=== PATIENT | female | born 1950 | race Caucasian/White ===

== ENCOUNTER 2020-11-09 18:37 | Emergency (ER) | payer BC, MEDICARE ==
--- NOTE | 2020-11-09 19:14 | EDM.PDOC ---
ED HPI GENERAL MEDICAL PROBLEM - General Chief Complaint: General Stated Complaint: SOB, VOMITING Time Seen by Provider: 11/09/20 18:55 Source of Information: Reports: Patient History Limitations: Reports: No Limitations - History of Present Illness INITIAL COMMENTS - FREE TEXT/NARRATIVE: 61-year-old lady was changed from oxybutynin to Darifenacin 24 days ago. She immediately began to feel changes in her equilibrium. She had increasing dizziness over the last 4 days as well as difficulty with urgency, incontinence, fatigue. She states that she stayed in bed most of the morning today. When she got up today she felt so dizzy she began to vomit. She vomited several times at home. She tried eating some watermelon and drinking some water to try to replenish her fluids but that just made her vomit again. To the emergency department for evaluation and treatment. She is suspecting that she has dehydration. Stop taking the oxybutynin at the request of her dentist secondary to dental caries. - Related Data Allergies Allergy/AdvReac Type Severity Reaction Status Date / Time No Known Allergies Allergy Verified 11/09/20 18:49 Home Meds: Home Meds Darifenacin [Enablex] 7.5 mg PO DAILY 11/09/20 [History] ED ROS GENERAL - Review of Systems Review Of Systems: See Below Constitutional: Reports: Malaise, Weakness, Fatigue HEENT: Reports: No Symptoms Respiratory: Reports: No Symptoms Cardiovascular: Reports: No Symptoms Endocrine: Reports: Fatigue GI/Abdominal: Reports: Nausea, Vomiting : Reports: Frequency, Incontinence, Urgency Musculoskeletal: Reports: No Symptoms Skin: Reports: No Symptoms Neurological: Reports: Dizziness, Difficulty Walking, Weakness Psychiatric: Reports: No Symptoms Hematologic/Lymphatic: Reports: No Symptoms Immunologic: Reports: No Symptoms ED EXAM, GENERAL - Physical Exam Exam: See Below Exam Limited By: No Limitations General Appearance: Alert, Mild Distress Eye Exam: Bilateral Eye: EOMI Throat/Mouth: Other (Oral mucosa is somewhat dry) Head: Atraumatic, Normocephalic Neck: Normal Inspection Respiratory/Chest: No Respiratory Distress, Lungs Clear, Normal Breath Sounds Cardiovascular: No Murmur, Tachycardia Peripheral Pulses: 2+: Radial (L), Radial (R), Dorsalis Pedis (L), Dorsalis Pedis (R) GI/Abdominal: Normal Bowel Sounds, Soft, Non-Tender Back Exam: Normal Inspection. No: CVA Tenderness (R), CVA Tenderness (L) Extremities: Normal Inspection, No Pedal Edema, Other (Capillary refill less than 2 seconds in all 4 distal extremities) Neurological: Alert, Oriented, CN II-XII Intact, Normal Cognition Psychiatric: Anxious Skin Exam: Warm, Dry Course - Vital Signs Text/Narrative:: Orthostatic pressures are negative. Lab rev Last Recorded V/S: Last Vital Signs Temp 37.1 C 11/09/20 18:45 Pulse 94 11/09/20 18:45 Resp 18 11/09/20 18:45 BP 133/74 11/09/20 18:45 Pulse Ox 96 11/09/20 18:45 Orthostatic Blood Pressure [ 107/68 Standing] Orthostatic Blood Pressure [ 104/73 Sitting] - Orders/Labs/Meds Orders: Active Orders 24 hr Category Date Time Status Orthostatic Vital Signs [RC] ASDIRECTED Care 11/09/20 19:17 Active Dextrose 50% in Water Med 11/09/20 20:00 Active 50 ml IVPUSH ASDIRECTED PRN Glucagon,Human Recombinant [GlucaGen] Med 11/09/20 20:00 Active 1 mg IM ASDIRECTED PRN Insulin Regular in 0.9 % NACL [Myxredlin in NS 100 UNIT Med 11/09/20 20:00 Active /100 ML] 100 ml IV TITRATE Lactated Ringers [Ringers, Lactated] 1,000 ml Med 11/09/20 21:00 Active IV ASDIRECTED Medication Orders Dextrose/Water (50% Dextrose In Water 50 Ml Syringe) 50 ml IVPUSH ASDIRECTED PRN PRN Reason: Hypoglycemia Glucagon (Glucagon,Human Recombinant 1 Mg Vial) 1 mg IM ASDIRECTED PRN PRN Reason: Hypoglycemia Insulin Regular in 0.9 % NACL (Myxredlin In Ns 100 Unit/100 Ml) 100 mls @ 9.979 mls/hr IV TITRATE LIZA; Protocol Last Admin: 11/09/20 20:44 Dose: 0.1 units/kg/hr, 9.979 mls/hr Documented by: ODELL Cosigned by: IRVIN Lactated Ringer's (Ringers, Lactated) 1,000 mls @ 1,000 mls/hr IV ASDIRECTED LIZA Last Admin: 08/14/21 20:52 Dose: 1,000 mls/hr Documented by: [facility] Labs: Laboratory Tests 11/09/20 11/09/20 11/09/20 Range/Units 19:20 19:20 19:46 WBC 10.7 H (3.0-10.3) x10-3/uL RBC 6.01 H (3.60-5.20) x10(6)uL Hgb 13.9 (11.4-15.5) g/dL Hct 48.7 H (34.2-48.2) % MCV 81.0 (76.7-100.5) fL MCH 23.1 L (23.9-33.9) pg MCHC 28.6 L (31.9-34.8) g/dL RDW 20.1 H (12.3-16.5) % Plt Count 303 (151-488) x10(3)uL MPV 10.1 (7.1-12.4) fL Neut % (Auto) 80.7 H (30.8-76.2) % Lymph % (Auto) 9.4 L (18.4-52.1) % [facility] % (Auto) 9.0 (4.4-15.7) % Eos % (Auto) 0.1 L (0.6-8.1) % Baso % (Auto) 0.8 (0.2-1.5) % Neut # (Auto) 8.6 H (1.5-6.3) x10-3/uL Lymph # (Auto) 1.0 (1.0-4.4) x10-3/uL [facility] # (Auto) 1.0 (0.3-1.0) x10-3/uL Eos # (Auto) 0.0 (0.0-0.8) x10-3/uL Baso # (Auto) 0.1 (0.0-0.1) x10-3/uL POC VBG pH (7.32-7.43) pH Units POC VBG pCO2 (41-51) mmHg POC VBG HCO3 (21-29) mmol/L VBG Base Excess (-2-3) mmol/L O2 Delivery Device Sodium 133 L (135-145) mmol/L Potassium 5.6 H (3.5-5.3) mmol/L Chloride 96 L (100-110) mmol/L Carbon Dioxide 14 L (21-32) mmol/L BUN 53 H (7-18) mg/dL Creatinine 2.1 H* (0.55-1.02) mg/dL Est Cr Clr Drug Dosing 24.00 mL/min Estimated GFR (MDRD) 23 L (>60) BUN/Creatinine Ratio 25.2 H (9-20) Glucose 1191 H* (80-116) mg/dL POC Glucose > 600 H* (80-116) mg/dL Calcium 9.9 (8.6-10.2) mg/dL Total Bilirubin 0.6 (0.1-1.3) mg/dL AST 14 (5-25) IU/L ALT 39 H (12-36) U/L Alkaline Phosphatase 140 H (56-112) IU/L Total Protein 7.8 (6.0-8.0) g/dL Albumin 3.8 (3.2-4.6) g/dL Globulin 4.0 g/dL Albumin/Globulin Ratio 1.0 Urine Color (YELLOW) Urine Appearance (CLEAR) Urine pH (5.0-6.5) Ur Specific [place] (1.010-1.025) Urine Protein (NEGATIVE) mg/dL Urine Glucose (UA) (NORMAL) mg/dL Urine Ketones (NEGATIVE) mg/dL Urine Occult Blood (NEGATIVE) Urine Nitrite (NEGATIVE) Urine Bilirubin (NEGATIVE) Urine Urobilinogen (NEGATIVE) mg/dL Ur Leukocyte Esterase (NEGATIVE) Urine RBC (0-5) Urine WBC (0-5) Ur Squamous Epith Cells (NS,R,O) Urine Bacteria (NS) SARS-CoV-2 RNA (CONCHIS) (NEGATIVE) 11/09/20 11/09/20 11/09/20 Range/Units 20:25 20:25 20:43 WBC (3.0-10.3) x10-3/uL RBC (3.60-5.20) x10(6)uL Hgb (11.4-15.5) g/dL Hct (34.2-48.2) % MCV (76.7-100.5) fL MCH (23.9-33.9) pg MCHC (31.9-34.8) g/dL RDW (12.3-16.5) % Plt Count (151-488) x10(3)uL MPV (7.1-12.4) fL Neut % (Auto) (30.8-76.2) % Lymph % (Auto) (18.4-52.1) % [facility] % (Auto) (4.4-15.7) % Eos % (Auto) (0.6-8.1) % Baso % (Auto) (0.2-1.5) % Neut # (Auto) (1.5-6.3) x10-3/uL Lymph # (Auto) (1.0-4.4) x10-3/uL [facility] # (Auto) (0.3-1.0) x10-3/uL Eos # (Auto) (0.0-0.8) x10-3/uL Baso # (Auto) (0.0-0.1) x10-3/uL POC VBG pH 7.29 L (7.32-7.43) pH Units POC VBG pCO2 32 L (41-51) mmHg POC VBG HCO3 15 L (21-29) mmol/L VBG Base Excess -10 L (-2-3) mmol/L O2 Delivery Device Room air Sodium (135-145) mmol/L Potassium 4.8 (3.5-5.3) mmol/L Chloride (100-110) mmol/L Carbon Dioxide (21-32) mmol/L BUN (7-18) mg/dL Creatinine (0.55-1.02) mg/dL Est Cr Clr Drug Dosing mL/min Estimated GFR (MDRD) (>60) BUN/Creatinine Ratio (9-20) Glucose (80-116) mg/dL POC Glucose (80-116) mg/dL Calcium (8.6-10.2) mg/dL Total Bilirubin (0.1-1.3) mg/dL AST (5-25) IU/L ALT (12-36) U/L Alkaline Phosphatase (56-112) IU/L Total Protein (6.0-8.0) g/dL Albumin (3.2-4.6) g/dL Globulin g/dL Albumin/Globulin Ratio Urine Color Yellow (YELLOW) Urine Appearance Clear (CLEAR) Urine pH 5.0 (5.0-6.5) Ur Specific [place] 1.005 L (1.010-1.025) Urine Protein Negative (NEGATIVE) mg/dL Urine Glucose (UA) >1000 H (NORMAL) mg/dL Urine Ketones 50 H (NEGATIVE) mg/dL Urine Occult Blood Negative (NEGATIVE) Urine Nitrite Negative (NEGATIVE) Urine Bilirubin Negative (NEGATIVE) Urine Urobilinogen Normal (NEGATIVE) mg/dL Ur Leukocyte Esterase Negative (NEGATIVE) Urine RBC 0-5 (0-5) Urine WBC 0-5 (0-5) Ur Squamous Epith Cells Not seen (NS,R,O) Urine Bacteria Rare H (NS) SARS-CoV-2 RNA (CONCHIS) (NEGATIVE) 11/09/20 11/09/20 Range/Units 21:25 21:25 WBC (3.0-10.3) x10-3/uL RBC (3.60-5.20) x10(6)uL Hgb (11.4-15.5) g/dL Hct (34.2-48.2) % MCV (76.7-100.5) fL MCH (23.9-33.9) pg MCHC (31.9-34.8) g/dL RDW (12.3-16.5) % Plt Count (151-488) x10(3)uL MPV (7.1-12.4) fL Neut % (Auto) (30.8-76.2) % Lymph % (Auto) (18.4-52.1) % [facility] % (Auto) (4.4-15.7) % Eos % (Auto) (0.6-8.1) % Baso % (Auto) (0.2-1.5) % Neut # (Auto) (1.5-6.3) x10-3/uL Lymph # (Auto) (1.0-4.4) x10-3/uL [facility] # (Auto) (0.3-1.0) x10-3/uL Eos # (Auto) (0.0-0.8) x10-3/uL Baso # (Auto) (0.0-0.1) x10-3/uL POC VBG pH (7.32-7.43) pH Units POC VBG pCO2 (41-51) mmHg POC VBG HCO3 (21-29) mmol/L VBG Base Excess (-2-3) mmol/L O2 Delivery Device Sodium 136 (135-145) mmol/L Potassium 5.1 (3.5-5.3) mmol/L Chloride 101 D (100-110) mmol/L Carbon Dioxide 15 L (21-32) mmol/L BUN 54 H (7-18) mg/dL Creatinine 1.9 H (0.55-1.02) mg/dL Est Cr Clr Drug Dosing 26.53 mL/min Estimated GFR (MDRD) 26 L (>60) BUN/Creatinine Ratio 28.4 H (9-20) Glucose 1108 H* D (80-116) mg/dL POC Glucose (80-116) mg/dL Calcium 9.1 (8.6-10.2) mg/dL Total Bilirubin (0.1-1.3) mg/dL AST (5-25) IU/L ALT (12-36) U/L Alkaline Phosphatase (56-112) IU/L Total Protein (6.0-8.0) g/dL Albumin (3.2-4.6) g/dL Globulin g/dL Albumin/Globulin Ratio Urine Color (YELLOW) Urine Appearance (CLEAR) Urine pH (5.0-6.5) Ur Specific [place] (1.010-1.025) Urine Protein (NEGATIVE) mg/dL Urine Glucose (UA) (NORMAL) mg/dL Urine Ketones (NEGATIVE) mg/dL Urine Occult Blood (NEGATIVE) Urine Nitrite (NEGATIVE) Urine Bilirubin (NEGATIVE) Urine Urobilinogen (NEGATIVE) mg/dL Ur Leukocyte Esterase (NEGATIVE) Urine RBC (0-5) Urine WBC (0-5) Ur Squamous Epith Cells (NS,R,O) Urine Bacteria (NS) SARS-CoV-2 RNA (CONCHIS) Negative (NEGATIVE) Meds: Medications Generic Name Dose Route Start Last Admin Trade Name Freq PRN Reason Stop Dose Admin Dextrose/Water 50 ml 11/09/20 20:00 50% Dextrose In Water 50 Ml Syringe IVPUSH ASDIRECTED PRN Hypoglycemia Glucagon 1 mg 11/09/20 20:00 Glucagon,Human Recombinant 1 Mg Vial IM ASDIRECTED PRN Hypoglycemia Insulin Regular in 0.9 % NACL 100 mls @ 9.979 mls/hr 11/09/20 20:00 11/09/20 20:44 Myxredlin In Ns 100 Unit/100 Ml IV 0.1 units/kg/hr TITRATE LIZA 9.979 mls/hr Administration Protocol 0.1 UNITS/KG/HR Lactated Ringer's 1,000 mls @ 1,000 mls/hr 11/09/20 21:00 11/09/20 20:52 Ringers, Lactated IV 1,000 mls/hr ASDIRECTED LIZA Administration Discontinued Medications Generic Name Dose Route Start Last Admin Trade Name Freq PRN Reason Stop Dose Admin Sodium Chloride 1,000 mls @ 999 mls/hr 11/09/20 19:15 11/09/20 19:29 Normal Saline IV 999 mls/hr ASDIRECTED LIZA Administration Sodium Chloride 1,000 mls @ 1,000 mls/hr 11/09/20 20:30 Normal Saline IV ASDIRECTED LIZA Insulin Human Regular 10 unit 11/09/20 20:00 11/09/20 20:08 Insulin Regular, Human 100 Units/Ml 3 Ml Vial IV 11/09/20 20:01 10 units ONETIME ONE Administration Ondansetron HCl 4 mg 11/09/20 20:20 11/09/20 20:27 Ondansetron 4 Mg/2 Ml Sdv IVPUSH 11/09/20 20:21 4 mg ONETIME ONE Administration Departure - Departure Time of Disposition: 22:47 Disposition: DC/Tfer to Other 70 Condition: Fair Clinical Impression: Hyperosmolar hyperglycemic state (HHS) - Discharge Information *PRESCRIPTION DRUG MONITORING PROGRAM REVIEWED*: Not Applicable *COPY OF PRESCRIPTION DRUG MONITORING REPORT IN PATIENT HEATHER: Not Applicable Instructions: Hyperglycemia, [id number] Forms: ED Department Discharge Sepsis Event Note (ED) - Focused Exam Vital Signs: Vital Signs Temp Pulse Resp BP Pulse Ox 11/09/20 18:45 37.1 C 94 18 133/74 96 - My Orders Last 24 Hours: My Active Orders 11/09/20 19:17 Orthostatic Vital Signs [RC] ASDIRECTED 11/09/20 20:00 Dextrose 50% in Water 50 ml IVPUSH ASDIRECTED PRN Glucagon,Human Recombinant [GlucaGen] 1 mg IM ASDIRECTED PRN Insulin Regular in 0.9 % NACL [Myxredlin in NS 100 UNIT/100 ML] 100 ml IV TITRATE 11/09/20 21:00 Lactated Ringers [Ringers, Lactated] 1,000 ml IV ASDIRECTED - Assessment/Plan Last 24 Hours: My Active Orders 11/09/20 19:17 Orthostatic Vital Signs [RC] ASDIRECTED 11/09/20 20:00 Dextrose 50% in Water 50 ml IVPUSH ASDIRECTED PRN Glucagon,Human Recombinant [GlucaGen] 1 mg IM ASDIRECTED PRN Insulin Regular in 0.9 % NACL [Myxredlin in NS 100 UNIT/100 ML] 100 ml IV TITRATE 11/09/20 21:00 Lactated Ringers [Ringers, Lactated] 1,000 ml IV ASDIRECTED
[2020-11-09] MEDS ORDERED: Sodium Chloride 0.9% 1,000 ML IV SCH ×2 (19:15→20:30)
[2020-11-09] MEDS ORDERED: Insulin Regular in 0.9 % NACL 100 ML IV SCH (20:00)
[2020-11-09] MEDS ORDERED: 50% Dextrose in Water 50 ML Syringe IVPUSH PRN (20:00)
[2020-11-09] MEDS ORDERED: Insulin Regular, Human 100 Units/ML 3 ML Vial IV ONE (20:00)
[2020-11-09] MEDS ORDERED: Glucagon,Human Recombinant 1 MG Vial IM PRN (20:00)
[2020-11-09] MEDS ORDERED: Ondansetron 4 MG/2 ML SDV IVPUSH ONE (20:20)
[2020-11-09] MEDS ORDERED: Lactated Ringers 1,000 ML IV SCH (21:00)
[2020-11-09 21:47] LABS: BASE EXCESS VENOUS,POC -10 mmol/L (-2-3); PCO2 VENOUS,POC 32 mmHg (41-51); PH VENOUS,POC 7.29 pH Units (7.32-7.43)
== END 2020-11-09 22:58 | disposition other institution (70) ==
LOC: FB.ED 18:37
DX: E87.0 Hyperosmolality and hypernatremia (principal); R73.9 Hyperglycemia, unspecified; Z20.822 Contact with and (suspected) exposure to COVID-19
CPT/HCPCS: 36415; 80048; 80053; 81001; 82947; 84132; 85025; 96374; 99284; J1815; J2405; J7030; J7120; U0002

== ENCOUNTER 2023-10-30 09:48 | Emergency (ER) | payer MEDICARE | END 2023-10-30 11:52 | disposition home or self-care (01) | LOC: FB.ED 09:48 | DX: I15.2 Hypertension secondary to endocrine disorders (principal); E11.59 Type 2 diabetes mellitus with other circulatory complications; E03.9 Hypothyroidism, unspecified; Z79.899 Other long term (current) drug therapy; Z90.710 Acquired absence of both cervix and uterus | CPT/HCPCS: 99283 ==

== ENCOUNTER 2023-10-31 08:38 | Emergency (ER) | payer MEDICARE ==
[2023-10-31] MEDS ORDERED: Sodium Chloride 0.9% 1,000 ML IV ONE (11:13)
== END 2023-10-31 10:23 | disposition home or self-care (01) ==
LOC: FB.ED 08:38
DX: I15.2 Hypertension secondary to endocrine disorders (principal); E11.59 Type 2 diabetes mellitus with other circulatory complications; I10 Essential (primary) hypertension; E11.9 Type 2 diabetes mellitus without complications; E03.9 Hypothyroidism, unspecified; Z79.899 Other long term (current) drug therapy; Z90.710 Acquired absence of both cervix and uterus
CPT/HCPCS: 93005; 93010; 99284